=== PATIENT | female | born 1960 | race Caucasian/White ===

== ENCOUNTER 2025-03-06 04:14 | Emergency (ER) | payer MEDICAID, SELFPAY ==
[2025-03-06] VITALS (9 sets, daily range): BP systolic 0–210; BP diastolic 0–119; PULSE 0–99; RESP 0–32; TEMP -17.7–36.9; O2SAT 0–100; BMI 30.4
[2025-03-06] MEDS: LORazepam 1 MG TABLET 2 MG PO (04:38)
--- NOTE | 2025-03-06 05:01 | ED_ITS ---
HPI - General Adult General Chief complaint: ETOH/Substance Use Stated complaint: HEROIN WITHDRAWALS/ NAUSEA/ VOMITTING Time Seen by Provider: 03/06/25 04:34 Source: patient Mode of arrival: EMS Limitations: no limitations History of Present Illness ED Provider: HPI narrative: Patient's history of opiate abuse last time he use heroin 5-6 bag was yesterday comes here with increased anxiety and restlessness with nausea patient has denied any other substance abuse no history of fall no alcohol use patient is very restless anxious on arrival saturating 100% at room air blood pressure 181/117 Related Data Previous Rx's ?Medication ?Instructions ?Recorded buprenorphine 8 mg-naloxone 2 mg 1 film buccal BID 5 days #10 ea 03/06/25 sublingual film (Suboxone) Allergies Allergy/AdvReac Type Severity Reaction Status Date / Time No Known Allergies Allergy Verified 03/06/25 04:27 Review of Systems 2 Review of Systems: Yes all other systems are reviewed and are negative PMFSH Social History Social History Use of substances other than those prescribed or required for medical reasons: Yes Substance Use Type: Heroin Substance Use Frequency: Chronic Longstanding Last Used Substance: Days (ago) Advance Directives: No Advance Directives Information Provided: Yes Do you have a plan to hurt others: No Plan Patient : No Physical Exam ED Vital Signs: Vital Signs - 24 hr 03/06/25 04:28 03/06/25 05:07 03/06/25 06:31 Temperature 98.4 F Pulse Rate 90 Respiratory Rate 18 24 H Blood Pressure 181/117 H 181/117 H Pulse Oximetry 100 Oxygen Delivery Method Room Air 03/06/25 09:29 03/06/25 11:35 03/06/25 12:58 Temperature Pulse Rate 88 82 Respiratory Rate 32 H 16 18 Blood Pressure 210/119 H Pulse Oximetry 99 99 Oxygen Delivery Method Room Air Room Air Room Air 03/06/25 16:26 Temperature Pulse Rate 84 Respiratory Rate 18 Blood Pressure 157/110 H Pulse Oximetry 97 Oxygen Delivery Method Room Air BMI result Body Mass Index 30.4 Appearance: Alert. Oriented X3. Anxious and restless Eyes: PERRLA, No Nystagmus ENT: Pharynx normal. Oral Mucosa moist Neck: Normal inspection. Neck supple. CVS: Normal heart rate and rhythm. Pulses normal. Respiratory: No respiratory distress. Equal air entry bilateral, no wheezing/rales/rhonchi Abdomen: Soft and nontender. Bowel sounds are present, no mass palpable, no CVA tenderness Skin: Skin warm and dry. Normal skin color. Normal skin turgor. Extremities: No lower extremity edema. No calf tenderness Neuro: Oriented X 3. No motor deficit. No sensory deficit.No cerebellar signs , cranial nerves II-XII intact Course Course Course Narrative: 03/06/2025,Dr. Steven Cuellar's note: I assumed care of this patient from my colleague, Dr. Fariha Raygoza at 07:00 hours pending laboratory evaluation and recovery team evaluation for heroin/polysubstance use disorder. The patient presented with altered mental status after using 5-6 bags of heroin, last use yesterday morning. The patient had increased anxiety and agitation. Patient was treated with multiple medications for her agitation including Suboxone film sublingual x2, clonidine 0.2 mg orally, Benadryl 50 mg IV, Haldol 5 mg IV, lorazepam 2 mg orally and Versed 2 mg IV. The patient's agitation improved but she still continued to have involuntary movements of her upper and lower extremities. The patient told me that she has these movement at her baseline in her not related to her drug use. My interpretation of the patient's laboratory evaluation is as follows: WBC normal 7600. H&H was elevated 16.4 and 50.5. Platelet count was low 158,000- there were no baseline labs on this patient, the elevated H&H may be secondary to dehydration/volume depletion but also may be secondary to poly site edema vera. BUN was elevated 18 with an elevated creatinine of 1.47 with a low GFR of 36. Glucose elevated 151. Alcohol was below detectable limits. Urine tox screen was positive for opiates, buprenorphine (which was given here in the emergency department prior to sending urine drug screen), fentanyl, benzodiazepines and cocaine. The patient told me that she is waiting to get into a Suboxone clinic but needs identification before she can get her Suboxone. Patient does not want to wait to be evaluated by our care team/recovery team and wants to leave the emergency department. She is interested in starting Suboxone. The patient was prescribed Suboxone 8 mg/2 mg sublingually b.i.d. and given a 5 day supply. I told her that she could not get into the Suboxone Clinic then she should follow up with our comprehensive Care Clinic to see if they can help her get on Suboxone. She was given printed and verbal instructions and discharged home. Medications Administered Discontinued Medications Generic Name Dose Route Start Last Admin Trade Name Scarlet PRN Reason Stop Dose Admin Buprenorphine/Naloxone 1 film 03/06/25 05:20 03/06/25 05:24 Buprenorphine/Naloxone 8/2 Mg Film SUBLINGUAL 03/06/25 05:21 1 film ONCE ONE Administration Buprenorphine/Naloxone 1 film 03/06/25 06:54 03/06/25 06:59 Buprenorphine/Naloxone 8/2 Mg Film SUBLINGUAL 03/06/25 06:55 1 film ONCE ONE Administration Clonidine HCl 0.2 mg 03/06/25 05:01 03/06/25 05:07 Clonidine Hcl 0.2 Mg Tablet PO 03/06/25 05:02 0.2 mg ONCE ONE Administration Protocol Diphenhydramine HCl 50 mg 03/06/25 08:42 03/06/25 09:09 Diphenhydramine Hcl 50 Mg/Ml Vial IVPUSH 03/06/25 08:43 50 mg ONCE ONE Administration Haloperidol Lactate 5 mg 03/06/25 10:50 03/06/25 11:27 Haloperidol Lactate 5 Mg/Ml Vial IVPUSH 03/06/25 10:51 5 mg ONCE ONE Administration Sodium Chloride 1,000 mls @ 999 mls/hr 03/06/25 10:50 03/06/25 13:06 Ns IV 03/06/25 11:50 Infused .Q1H1M STA Infusion Lorazepam 2 mg 03/06/25 04:34 03/06/25 04:38 Lorazepam 1 Mg Tablet PO 03/06/25 04:35 2 mg ONCE ONE Administration Midazolam HCl 2 mg 03/06/25 05:46 03/06/25 05:49 Midazolam Hcl 2 Mg/2 Ml Vial IM 03/06/25 05:47 2 mg ONCE ONE Administration Midazolam HCl 2 mg 03/06/25 08:48 03/06/25 09:18 Midazolam Hcl 2 Mg/2 Ml Vial IVPUSH 03/06/25 08:49 2 mg ONCE ONE Administration Medical Decision Making Medical Decision Making MDM Narrative: Patient with opiate use disorder in opiate withdrawal was given benzos clonidine and started on Suboxone patient is still very anxious and agitated will give 2nd dose of Suboxone labs are pending patient is signed out Dr. [place] care team consulted Lab Data 03/06/25 07:11 03/06/25 07:14 Labs: Lab Results 03/06/25 03/06/25 03/06/25 Range/Units 07:11 07:14 12:57 WBC 7.6 (4.8-10.8) X10*3/uL RBC 5.42 (4.20-5.50) X10*6/uL Hgb 16.4 H (12.0-16.0) g/dl Hct 50.5 H (37.0-47.0) % MCV 93.2 (80.0-98.0) fL MCH 30.3 (27.0-33.0) pg MCHC 32.5 (31.0-35.0) g/dl RDW 13.9 (11.0-16.0) % Plt Count 158 L (160-400) X10*3/uL MPV 10.1 (9.4-12.3) fL Immature Gran % (Auto) 0.3 (0.0-0.4) % Neut % (Auto) 81.2 H (45-73) % Lymph % (Auto) 12.0 L (20-40) % Woodward % (Auto) 5.4 (2-11) % Eos % (Auto) 0.4 (0-4) % Baso % (Auto) 0.7 (0-2) % Lymph # (Auto) 0.9 L (1.2-4.9) X10*3/uL Woodward # (Auto) 0.4 (0.1-1.2) X10*3/uL Eos # (Auto) 0.0 (0.0-0.4) X10*3/uL Baso # (Auto) 0.1 (0.0-0.2) X10*3/uL Abs Immat Gran (auto) 0.02 (0.00-0.03) X10*3/uL Absolute Neuts (auto) 6.2 (2.0-8.3) x10*3/uL Absolute Nucleated RBC 0.000 (0.0-0.012) X10*3/uL Nucleated RBC % (auto) 0.0 (0.0-0.2) /100WBC Sodium 142 (135-145) mmol/L Potassium 4.0 (3.3-5.1) mmol/L Chloride 107 (96-108) mmol/L Carbon Dioxide 22 (22-29) mmol/L Anion Gap 17 (12-20) BUN 18 H (9-16) mg/dL Creatinine 1.47 H (0.5-1.4) mg/dL Estim Creat Clear Calc 45.5 Estimated GFR 36 Random Glucose 106 (60-115) mg/dL Calcium 9.4 (8.4-10.2) mg/dL Magnesium 1.7 (1.6-2.6) mg/dL Total Bilirubin 0.8 (0.0-1.0) mg/dL AST 23 (5-31) U/L ALT 8 (0-31) U/L Alkaline Phosphatase 65 (39-117) U/L Total Creatine Kinase 151 H (26-140) U/L Total Protein 7.0 (6.5-8.0) g/dL Albumin 4.1 (3.5-5.0) g/dL Urine Opiates Screen POSITIVE H (Not Detect) Ur Buprenorphine Scrn Positive H (Not Detect) ng/mL Ur Oxycodone Screen Not Detected (Not Detect) ng/mL Urine Methadone Screen Not Detected (Not Detect) ng/mL Urine Fentanyl Screen POSITIVE H (Not Detect) Ur Barbiturates Screen Not Detected (Not Detect) Ur Phencyclidine Scrn Not Detected (Not Detect) Ur Amphetamines Screen Not Detected (Not Detect) U Benzodiazepines Scrn POSITIVE H (Not Detect) Urine Cocaine Screen POSITIVE H (Not Detect) U Marijuana (THC) Screen Not Detected (Not Detect) Ethyl Alcohol < 10 mg/dL Discharge Plan Discharge Clinical Impression: Opiate withdrawal, Opiate use, Involuntary jerky movements Patient Disposition: Home, Self-Care Instructions: Opioid Use Disorder (ED) Additional Instructions: your drug screen was positive for opiates, Suboxone, fentanyl, benzodiazepines and cocaine. You told me that you are not taking Suboxone at this time and your are going to get into a Suboxone clinic therefore I am prescribing a 5 day course of Suboxone 8/2 mg twice a day. It is important that you get into the Suboxone clinic or that you follow-up with our comprehensive care program. Follow-up with your doctor in 2 days. Please return to the emergency department if your symptoms get worse or if you develop any symptoms that are concerning to you. Opiate use disorder You were seen in our Emergency Department today for treatment of opiate use disorder. You may have been dosed with medication for opiate use disorder (MOUD) in the form of suboxone or methadone. You may experience feeling some withdrawal symptoms and this is normal. The? dose in the Emergency Department is a starting dose and meant to be titrated up once you follow up with a clinic. Please do not feel discouraged, it is a process. The nurse has reviewed with you where to follow up and what information to bring with you, to continue treatment. You also may have been given naloxone (narcan) to take home with you. This medication is used to potentially treat opiate overdose. If you decide you want to stop or cut down on how much you?re using, you can call or walk into our outpatient Addiction Treatment office: [facility] (M-F 9am-5p) [address], [address] [phone] You may have been provided with safer injection?items, please take time to take care of YOU and your health. Use new supplies whenever possible to lessen the chances of infections and other illnesses.? ?If you need more supplies, please go [facility],? [address] [place] [address] OR you can call or text to coordinate delivery of safer supplies. You were also provided a list of several treatment providers in the area.? If you experience any worsening symptoms you cannot control please return to the ED or call 911. Please follow up at your next appointment. Things to look out for are fevers, chest pain, shortness of breath, severe pain, dizziness, fainting or any other concerns. Prescriptions: New buprenorphine-naloxone [Suboxone] 8-2 mg film 1 film buccal BID 5 Days Qty: 10 0RF Interventions: ED Discharge Assessment Last Done: 03/06/25 20:21 Discharge Date/Time: 03/06/25 20:24 Print Language: Iranian
[2025-03-06] MEDS: cloNIDine HCL 0.2 MG TABLET PO (05:07)
[2025-03-06] MEDS: Buprenorphine/Naloxone 8/2 mg FILM 1 FILM SUBLINGUAL ×2 (05:24→06:59)
[2025-03-06] MEDS: Midazolam HCl 2 MG/2 ML VIAL IM (05:49)
--- NOTE | 2025-03-06 05:52 | PC.NURSE ---
Pt is agitated and unable to sit still at the bedside due to discomfort and withdrawal symptoms. Reports feeling nauseaus and is dry heaving. Unable to obtain IV access, labs, or EKG as pt is unable to remain still and is exhibiting uncontrolled body movements. Versed IM administered to alleviate discomfort. Monitoring is ongoing.
--- NOTE | 2025-03-06 06:34 | MHC.EDTECH ---
Unable to get EKG and labs due to the pt moving around too muc. Provider is aware
[2025-03-06 07:15] LABS: MANUAL DIFF FLAG NO
--- NOTE | 2025-03-06 07:15 | PC.NURSE ---
Pt A&O X4 Unable to keep BP cuff and O2 sat on- temp obtained, nonfebrile- Suboxone administered and IV inserted but unable to lie still for EKG. Provider aware of disposition of restlessness and shouting out in discomfort. HR stable on monitor.
--- NOTE | 2025-03-06 07:15 | MHC.EDTECH ---
Attempted to do ekg, stickers and lead on patient stated I cant do this shit pulls off the leads. Rn aware Ecg unable to get. pt refuse unable to stay still.
[2025-03-06 07:26] LABS: Basophils Absolute Auto 0.1 X10*3/uL (0.0-0.2); Basophils Percent Auto 0.7 % (0-2); Eosinophils Percent Auto 0.4 % (0-4); Hematocrit 50.5 % (37.0-47.0); Hemoglobin 16.4 g/dl (12.0-16.0); Imm Gran Abs Auto 0.02 X10*3/uL (0.00-0.03); Imm Gran Pct Auto 0.3 % (0.0-0.4); Lymphocytes Absolute Auto 0.9 X10*3/uL (1.2-4.9); Mean Corpuscular HGB Conc 32.5 g/dl (31.0-35.0); Mean Corpuscular Hemoglobin 30.3 pg (27.0-33.0); Mean Corpuscular Volume 93.2 fL (80.0-98.0); Mean Platelet Volume 10.1 fL (9.4-12.3); Monocytes Absolute Auto 0.4 X10*3/uL (0.1-1.2); Monocytes Percent Auto 5.4 % (2-11); Neutrophils Absolute Auto 6.2 x10*3/uL (2.0-8.3); Neutrophils Percent Auto 81.2 % (45-73); Platelet Count 158 X10*3/uL (160-400); Red Blood Count 5.42 X10*6/uL (4.20-5.50); Red Cell Distribution Width 13.9 % (11.0-16.0); White Blood Count 7.6 X10*3/uL (4.8-10.8)
[2025-03-06 07:39] LABS: Ethanol < 10 mg/dL
[2025-03-06 08:23] LABS: Alanine Aminotransferase 8 U/L (0-31); Albumin Level 4.1 g/dL (3.5-5.0); Alkaline Phosphatase 65 U/L (39-117); Anion Gap 17 (12-20); Aspartate Amino Transferase 23 U/L (5-31); Bilirubin Total 0.8 mg/dL (0.0-1.0); Blood Urea Nitrogen 18 mg/dL (9-16); Calcium 9.4 mg/dL (8.4-10.2); Carbon Dioxide 22 mmol/L (22-29); Chloride 107 mmol/L (96-108); Creatinine Clr Calc Pharmacy 45.5; Estimated Glomerular Filt Rate 36; Glucose Random 106 mg/dL (60-115); Magnesium 1.7 mg/dL (1.6-2.6); Sodium 142 mmol/L (135-145)
[2025-03-06] MEDS: diphenhydrAMINE HCL 50 MG/ML VIAL IVPUSH (09:09)
[2025-03-06] MEDS: Midazolam HCl 2 MG/2 ML VIAL IVPUSH (09:18)
--- NOTE | 2025-03-06 09:21 | PC.NURSE ---
Pt still agigtated and rolling around in bed- No effect from Benadryl;. Unable to stay stil for BP and keeps ripping off cuff. Provider aware of pt condition. HR 90's sat 90s
--- NOTE | 2025-03-06 09:39 | PC.NURSE ---
Pt remains restless/agitated. Given more meds as charted to assist in sx, no effect at this time. Unable to obtain BP as pt rips off cuff despite encouragement to keep on for BP reading. Pt voided but in commode with absorbent pad with tech and unable to obtain spec at this time. NSR on tele.
--- NOTE | 2025-03-06 11:07 | MHC.CARE ---
Pt is a 64 y/o, female who is previously unknown to the CARE Team.? Today, pt arrived at the ED via ambulance with a complaint of increased anxiety, restlessness, nausea. Pt reported using 5-6 bags of heroin/fentanyl yesterday and daily, prior to her presentation. CARE Team attempted to meet with pt to conduct a Recovery/Behavioral Health Assessment.? Pt does not appear to be able to appropriately engage in an assessment as she appears to be going through withdrawals at the time.? She was. However, able to minimally engage in an assessment. Pt is observed as agitated, rolling about in bed, head lolling from one side to the other, eyes rolling up into her head, uncontrolled body movements, and appearing to be in a great deal of discomfort. Pt was given benzos clonidine and started on Suboxone but was still very anxious and agitated. ED staff were unable to obtain an EKG and labs due to pt?s uncontrolled body movements. Pt denies depression and endorses anxiety. She denies HI, SI, , self-harm, and AVH. She denies any hx of such. She reports frequent opiate use since the age of at or around 16 y/o.? She reports a period of anxiety for an undisclosed period of time ?A long time ago.? She reports one overdose, approximately a year ago when she and a boyfriend were using together.? Both overdosed that day.? She did not provide further details regarding the overdose but it does appear that it is accidental. Pt reports that she has no recovery supports in place and denies any hx of tx for mental illness or substance use. She denies any hx of trauma.? She denies any known family hx of mental illness or substance use.
[2025-03-06] MEDS: Haloperidol Lactate 5 MG/ML VIAL IVPUSH (11:27)
[2025-03-06] MEDS: 0.9 % Sodium Chloride 1,000 ML 999 ML IV (11:28)
--- NOTE | 2025-03-06 11:49 | PC.NURSE ---
Addendum entered by Roberta Cook 03/06/25 13:13: Dr Cuellar updated Addendum entered by Roberta Cook 03/06/25 11:56: Can follow commands but only able to control body movements for short time when attempting care Original Note: Pt remains restless, additional medication interventions attempted/charted. 20g to left wrist bloody and infiltrated d/t pt constant thrashing. IV removed, new IV started to right wrist. BP obtained but ?accuracy d/t pts level of agitation. NS fluid bolus started. Needed to be wrapped x 2 as first wrap came off with movement of pt.
[2025-03-06 13:13] LABS: Amphetamine Screen Urine Not Detected (Not Detect); Barbiturates, Urine Not Detected (Not Detect); Benzodiazepines Screen Urine POSITIVE (Not Detect); Buprenorphine Scr Positive (Not Detect); Cannabinoid Screen Urine Not Detected (Not Detect); Cocaine Screen Urine POSITIVE (Not Detect); Fentanyl, urine POSITIVE (Not Detect); Methadone Screen, Urine Not Detected (Not Detect); Opiate Screen Urine POSITIVE (Not Detect); Oxycodone Screen Urine Not Detected (Not Detect); Phencyclidine Screen Urine Not Detected (Not Detect)
--- NOTE | 2025-03-06 18:12 | PC.NURSE ---
Pt more restful but with moments of jerky movements. Discussing with pt to find ride but states no family and does not want to bug sisters. Pt educated that she needs a ride and is discharged. Pt still has a difficult time tolerating blood pressures, Dr Cuellar aware and okay with discharge with BPs noted.
== END 2025-03-06 20:24 | disposition home or self-care (01) ==
PROVIDERS: Internal Medicine; Emergency Provider Emergency Medicine Emergency Medical Services
DX: F11.23 Opioid dependence with withdrawal (principal); R25.8 Other abnormal involuntary movements; F41.9 Anxiety disorder, unspecified; R45.1 Restlessness and agitation
CPT/HCPCS: 36415; 80053; 80307; 82550; 83735; 85025; 96361; 96372; 96374; 96375; 99285; J1200; J1630; J2250

== ENCOUNTER 2025-03-28 10:28 | Outpatient (REF) | payer MEDICAID, SELFPAY ==
[2025-03-28 11:03] LABS: MANUAL DIFF FLAG NO
[2025-03-28 11:16] LABS: Basophils Absolute Auto 0.1 X10*3/uL (0.0-0.2); Basophils Percent Auto 0.8 % (0-2); Eosinophils Absolute Auto 0.1 X10*3/uL (0.0-0.4); Eosinophils Percent Auto 2.3 % (0-4); Hematocrit 49.7 % (37.0-47.0); Hemoglobin 15.9 g/dl (12.0-16.0); Imm Gran Abs Auto 0.01 X10*3/uL (0.00-0.03); Imm Gran Pct Auto 0.2 % (0.0-0.4); Lymphocytes Absolute Auto 1.6 X10*3/uL (1.2-4.9); Lymphocytes Percent Auto 26.8 % (20-40); Mean Corpuscular Volume 93.8 fL (80.0-98.0); Mean Platelet Volume 10.2 fL (9.4-12.3); Monocytes Absolute Auto 0.5 X10*3/uL (0.1-1.2); Neutrophils Absolute Auto 3.7 x10*3/uL (2.0-8.3); Neutrophils Percent Auto 61.9 % (45-73); Platelet Count 181 X10*3/uL (160-400); Red Cell Distribution Width 14.3 % (11.0-16.0)
[2025-03-28 12:04] LABS: Alanine Aminotransferase 13 U/L (0-31); Albumin Level 4.1 g/dL (3.5-5.0); Alkaline Phosphatase 66 U/L (39-117); Anion Gap 12 (12-20); Aspartate Amino Transferase 15 U/L (5-31); Bilirubin Total 0.4 mg/dL (0.0-1.0); Blood Urea Nitrogen 25 mg/dL (9-16); Calcium 9.3 mg/dL (8.4-10.2); Carbon Dioxide 27 mmol/L (22-29); Chloride 107 mmol/L (96-108); Estimated Glomerular Filt Rate 36; Glucose Random 126 mg/dL (60-115); Potassium 3.5 mmol/L (3.3-5.1); Sodium 142 mmol/L (135-145); Total Protein 6.8 g/dL (6.5-8.0)
--- OUTSIDE RECORDS SUMMARY | 2025-03-28 12:20 | XMS_ITS | Encounter Summary ---
Author Organization [facility] Address [address] [place] [address] [address] [place] [address] Care Team Providers Care Product Operations Associate Name Role Phone Unavailable Primary Care Provider Unavailabl e Reason for Visit * Reason Onset Date Comments Med Refill 03/14/2025 Encounter Details Date Type Department Care Team (Late st Contact Info) Description 03/14/2025 Refill [facility] MEDICINE [address] [place] [phone] Vannessa Spears, RN Social History Tobacco Use Types Packs/Day Years Used Date Smoking Tobacco: Never Assessed Comments Unknown Sex and Gender Information Value Date Recorded Sex Assigned at Female 08/03/2022 10:29 AM EDT Legal Sex Female 10:29 AM EDT Gender Identity Female 03/09/2025 9:49 AM EDT Sexual Orientation Straight 03/09/2025 9: 49 AM EDT documented as of this encounter Plan of Treatment Upcoming Encounters Date Type Department Care Team (Late st Contact Info) Description 04/04/2025 11:15 AM EDT Clinical Support [facility] MEDICINE [address] [place] [address] Debi Cedeño, VIPUL [address] [place] [address] documented as of this encounter Visit Diagnoses Not on filedocumented in this encounter
[2025-03-29 08:18] LABS: HBS Num1 0.77 mIU/mL (0-7.99); HBc Num1 0.11 S/CO (0.00-0.79); HBsAGNum1 0.44 S/CO (0.00-0.99); HIV AB/AG Nonreactive (Nonreactive); HIV Num 1 0.06 S/CO (0.00-0.99); Hepatitis B Core Antibody Nonreactive (Nonreactive); Hepatitis B Surface Antigen Negative (Negative); ~HepC Num1 0.16 S/CO (0.00-0.79); ~Hepatitis B Surface Antibody NONREACTIVE (Nonreactive); ~Hepatitis C Antibody Nonreactive (Nonreactive)
[2025-03-29 12:08] LABS: RPR Rapid Plasma Reagin NON-REACTIVE (NON-REACTIVE)
[2025-03-30 08:58] LABS: Hepatitis A Antibody IgG REACTIVE (Nonreactive); ~Hepatitis A Antibody IgG 9.72 S/CO (0.00-0.99)
[2025-03-31 10:58] LABS: TS Negative Control Passed; TS Panel A 0; TS Panel B 1; TS Positive Control Passed; TSpotTB Negative (Negative)
== END 2025-03-28 10:29 | disposition home or self-care (01) ==
LOC: HO.HHCL 10:28
PROVIDERS: Visit Provider Emergency Medicine
DX: Z11.1 Encounter for screening for respiratory tuberculosis (principal); Z11.4 Encounter for screening for human immunodeficiency virus [HIV]; F11.20 Opioid dependence, uncomplicated
CPT/HCPCS: 36415; 80053; 85025; 86481; 86592; 86704; 86706; 86708; 86803; 87340; 87389

== ENCOUNTER 2025-07-03 18:22 | Outpatient (REF) | payer MEDICAID, SELFPAY ==
--- OUTSIDE RECORDS SUMMARY | 2025-07-03 13:00 | XMS_ITS | Encounter Summary ---
Author Organization [employer] Address [address] [place] [address] Care Team Providers Care Greeting Card Editor Name Role Phone Jose Chiu RN Unavailable [phone] Ashleigh Moreno Unavailable Lelo Hart Primary Care Provider [phone] Encounter Details Date Type Department Care Team (Late st Contact Info) Description 07/03/2025 1:00 PM EDT Office Visit [facility] [place] [facility] [address] [place] [address] Lelo Hart FNP [address] [place] [address] Encounter for wellness examination in adult (Primary Dx); Mild intermittent asthma without complication; Vaginal discharge; Dysuria Social History Tobacco Use Types Packs/Day Years Used Date Smoking Tobacco: Every Day Cigarettes Passive Smoke Exposure: Current Smokeless Tobacco: Current Tobacco Cessation:Ready to Q uit: No; Counseling Given: Yes Alcohol Answer Date Recorded How often do you have a drink containing alcohol ? 0 03/27/2025 Average Number of Drinks Not on file 025 Frequency of Binge Drinking Not on file 03/05 Depression Answer Date Recorded Patient Health Questionnaire-9 Score 2 07/03/2025 Patient Health Questionnaire-9 Score 2 07/03/2025 Last PHQ-9: Questionnaire Data Not on file 0 07/03/2025 Housing Stability Answer Date Recorded What is your housing situation today? I am not s ure 07/03/[address] you li ve. Do you have problems with any of the following? None of the above 07/03/2025 Food Insecurity Answer Date Recorded Within the past 12 months, y ou worried that your food would run out before you got money to buy more: Sometimes True 2024 Within the past 12 months,th e food you bought just didn't last and you didn't have enough money to get more: Often true 07/03/2025 Transportation Answer Date Recorded In the past 12 months, has l ack of transportation kept you from medical appts, meetings, work or from getting things needed for daily living? Yes, it has kept me from medical appointments or getting medications. 07/03/2025 Utilities Answer Date Recorded In the past 12 months, has t he electric, gas, oil or water company threatened to shut off services in your home? Yes 07/03/2025 Depression Answer Date Recorded Patient Health Questionnaire-2 Score 0 07/03/2025 Internet Access Answer Date Recorded Internet Access Q1 No 07/03/2025 Internet Access Q2 I do not want or need it 06/06 Comments Unknown Sex and Gender Information Value Date Recorded Sex Assigned at Female 08/03/2022 10:29 AM EDT Legal Sex Female 10:29 AM EDT Gender Identity Female 03/09/2025 9:49 AM EDT Sexual Orientation Straight 03/09/2025 9: 49 AM EDT documented as of this encounter Last Filed Vital Signs Vital Sign Reading Time Taken Comments Blood Pressure 168/112 07/03/2025 1:21 PM EDT Pulse 84 07/03/2025 1:05 PM EDT Temperature 36.4 C (97.5 F) 07/03/2025 1:05 PM EDT Respiratory Rate 16 07/03/2025 1:05 PM EDT Oxygen Saturation - - Inhaled Oxygen Concentration - - Weight 66.2 kg (146 lb) 07/03/2025 1:05 PM EDT Height 155 cm (5' 1.02 ) 07/03/2025 1:05 PM EDT Body Mass Index 27.56 07/03/2025 1:05 PM EDT documented in this encounter Functional Status * Over the past 2 weeks, how often have you been bothered by any of the following problems? Question Answer Date of Assessment Author Patient Health Questionnaire -2 Score 0 07/03/2025 1:50 PM EDT Analilia Powell MA * Little interest or pleasure in doing things Answer Date of Assessment Author Not at all 07/03/2025 1:50 PM EDT Analilia Ruiz MA * Feeling down, depressed, or hopeless Answer Date of Assessment Author Not at all 07/03/2025 1:50 PM EDT Analilia Ruiz MA * Trouble falling or staying asleep, or sleeping too much Answer Date of Assessment Author Several days 07/03/2025 1:50 PM EDT Analilia Ruiz MA * Feeling tired or having little energy Answer Date of Assessment Author Several days 07/03/2025 1:50 PM EDT Analilia Ruiz MA * Poor appetite or overeating Answer Date of Assessment Author Not at all 07/03/2025 1:50 PM EDT Analilia Ruiz MA * Feeling bad about yourself - or that you are a failure or have let yourself or your family down Answer Date of Assessment Author Not at all 07/03/2025 1:50 PM EDT Analilia Ruiz MA * Trouble concentrating on things, such as reading the newspaper or watching television Answer Date of Assessment Author Not at all 07/03/2025 1:50 PM EDT Analilia Ruiz MA * Moving or speaking so slowly that other people could have noticed? Or the opposite - being so fidgety or restless that you have been moving around a lot more than usual. Answer Date of Assessment Author Not at all 07/03/2025 1:50 PM EDT Analilia Ruiz MA * Thoughts that you would be better off or hurting yourself in some way Answer Date of Assessment Author Not at all 07/03/2025 1:50 PM EDT Analilia Ruiz MA * Patient Health Questionnaire-9 Score Answer Date of Assessment Author 2 07/03/2025 1:50 PM EDT Analilia Ruiz MA * How difficult have these problems made it for you to do your work, take care of things at home, or get along with other people? Answer Date of Assessment Author Not difficult at all 07/03/2025 1:50 PM EDT Analilia Luo MA * Over the last 2 weeks, how often have you been bothered by any of the following problems? Question Answer Date of Assessment Author Feeling nervous, anxious, or on edge 1 07/03/2025 1:51 PM EDT Analilia Powell MA Not being able to stop or control worrying 0 07/03/2025 1:51 PM EDT Analilia Powell MA Worrying too much about different things 1 07/03/2025 1:51 PM EDT Analilia Powell MA Trouble relaxing 1 07/03/2025 1:51 PM EDT Analilia Chow MA Being so restless that it is hard to sit still 0 07/03/2025 1:51 PM EDT Analilia Powell MA Becoming easily annoyed or irritable 0 07/03/2025 1:51 PM EDT Analilia Powell MA Feeling afraid as if somethi ng awful might happen 0 07/03/2025 1:51 PM EDT Analilia Powell MA ASIF-7 Total Score 3 07/03/2025 1:51 PM EDT Analilia Powell MA documented as of this encounter Plan of Treatment Upcoming Encounters Date Type Department Care Team (Late st Contact Info) Description 07/11/2025 10:30 AM EDT Office Visit [facility] [place] [facility] [address] [place] [address] Alpa Toro MD [address] [place] [address] 07/17/2025 3:15 PM EDT Office Visit [facility] [place] [facility] [address] [place] [address] Lelo Hart FNP [address] [place] [address] Scheduled Orders Name Type Priority Associated Diagnoses Orde r Schedule Lipid Panel, Standard Lab Routine Encounter for wellness examination in adult Expected: 07/03/2025 (Approximate), Expires: 07/01/2026 Hemoglobin A1c Lab Routine Encounter for wellness examination in adult Expected: 07/03/2025 (Approximate), Expires: 07/01/2026 Comprehensive Metabolic Panel Lab Routine Encounter for wellness examination in adult Expected: 07/03/2025 (Approximate), Expires: 07/03/2026 TSH Lab Routine Encounter for wellness examination in adult Expected: 07/03/2025 (Approximate), Expires: 07/03/2026 Hepatitis C Antibody with Reflex to HCV, RNA, Quantitative, Real-Time PCR Lab Routine Encounter for wellness examination in adult Expected: 07/03/2025, Expires: 07/03/2026 CBC auto differential Lab Routine Encounter for wellness examination in adult Expected: 07/03/2025 (Approximate), Expires: 07/03/2026 HIV-1/2 Antigen and Antibodies, Fourth Generation, with Reflexes Lab Routine Encounter for wellness examination in adult Expected: 07/03/2025 (Approximate), Expires: 07/03/2026 Bacterial Vaginosis Panel Microbiology Routine Vaginal discharge Ordered: 07/03/2025 Urine Culture Routine Microbiology Routine Dysuria Ordered: 07/03/2025 Chlamydia/N. Gonorrhoeae, PCR, Urine Lab Routine Encounter for wellness examination in adult Ordered: 07/03/2025 documented as of this encounter Goals Goal Patient Goal Type Associated Problems Recent Progress Patient-Stated? Author <enter goal here> General No change(2024 11:54 AM EDT) Yes Alpa Toro MD Note: Keep medical appointment Increase coping skills to promote long-term recovery and improve ability to perform daily activities General Not on track( 025 11:54 AM EDT) No Archana Nation RN documented as of this encounter Procedures Procedure Name Priority Date/Time Associated Diagnosis Comments POCT URINALYSIS DIPSTICK Routine 07/03/2025 2:07 PM EDT Dysuria documented in this encounter Results * POCT Urinalysis (07/03/2025 2:07 PM EDT) Color, UA Yellow Clarity, UA Clear Glucose, UA Negative Bilirubin, UA Negative Ketones, UA Negative Spec Grav, UA 1.030 Blood, UA Negative Negative, None Detected pH, UA 6.5 Protein, UA Trace Comment:100 mg/dL Urobilinogen, UA 0.2 Leukocytes, UA Negative Negative, Rare, Trace Nitrite, UA Negative Negative, None Detected Appearance, UA clear QC Media Lot # [id number] Lot# Expiration Date [id number] Urine 07/03/2025 2:07 PM EDT Lelo MENA POINT OF CARE TEST ENTER/EDIT ORDERABLES Final Result documented in this encounter Visit Diagnoses Diagnosis Encounter for wellness examination in adult- Primary Mild intermittent asthma without complication Vaginal discharge Leukorrhea, not specified as infective Dysuria documented in this encounter Additional Health Concerns Assessment Noted Time PHQ-9 Depression Total Score: 2 07/03/20 1:50 PM EDT documented as of this encounter Care Teams Greeting Card Editor Relationship Specialty Start Date End Date Lelo Hart FNP [address] [place] [phone] PCP - General Family Medicine 07/03/25 Jose Chiu RN [address] [place] [phone] Registered Nurse Family Medicine 04/18/25 Ashleigh Moreno 04/18/25 documented as of this encounter
--- OUTSIDE RECORDS SUMMARY | 2025-07-03 14:30 | XMS_ITS | Encounter Summary ---
Author Organization [employer] Address [address] [place] [address] Care Team Providers Care Mime Artist Name Role Phone Jose Chiu RN Unavailable [phone] Ashleigh Moreno Unavailable Lelo Hart SWAGE TOOLSETTER Primary Care Provider [phone] Reason for Visit * Reason Comments OBAT Encounter Details Date Type Department Care Team (Latest Contact Info) Description 07/03/2025 2:30 PM EDT Clinical Support [facility] [address] [place] [address] Wanda Murrlel RN Opioid type dependence, continuous (CMS/HCC) (Primary Dx) Social History Tobacco Use Types Packs/Day Years Used Date Smoking Tobacco: Every Day Cigarettes Passive Smoke Exposure: Current Smokeless Tobacco: Current Alcohol Answer Date Recorded How often do [...] AM EDT documented as of this encounter Functional Status * Over the [...] Description 07/11/2025 10:30 AM EDT Office Visit [facility] [address] [place] [address] Alpa Toro MD [address] [place] [address] 07/17/2025 3:15 PM EDT Office Visit [facility] [address] [place] [address] Lelo Hart FNP [address] [place] [address] documented as of this encounter Goals Goal [...] Name Priority Date/Time Associated Diagnosis Comments POCT ANAID-14 URINE DRUG SCREEN Routine 07/03/2025 2:29 PM EDT Opioid type dependence, continuous (CMS/HCC) documented in this encounter Results * (ABNORMAL) POCT ANAID-14 Urine Drug Screen (07/03/2025 2:29 PM EDT) THC Positive(A) Negative Cocaine Screen, Urine Positive(A) Negative Opiate Screen, Urine Negative Negative Methamphetamine Screen Urine Negative Negative Amphetamine Screen, Urine Negative Negative Benzodiazepines Screen, Urine Negative Negative Barbiturate Screen, Urine Negative Negative Methadone Screen, Urine Negative Negative Buprenophine Screen, Urine Positive(A) Negative TCA, Urine Negative Negative MDMA Urine Negative Negative ng/mL Oxycodone Screen, Urine Negative Negative Propoxyphene, Urine Negative Negative Fentanyl, Urine Negative Negative Urine Urine specimen obtained by clean catch procedure / Unknown 07/03/2025 2:29 PM EDT Lalito Gudino MD POINT OF CARE TEST ENTER/EDIT OR DERABLES Final Result documented in this encounter Visit Diagnoses Diagnosis Opioid type dependence, continuous (CMS/HCC) (HCC)- Primary Opioid type dependence, continuous documented in this encounter Additional Health Concerns Assessment Noted Time PHQ-9 Depression Total Score: 2 07/03/20 1:50 PM EDT documented as of this encounter Care Teams Mime Artist Relationship Specialty Start Date End Date Lelo Hart FNP [address] [place] [address] PCP - General Family Medicine 07/03/25 Jose Chiu RN [address] [place] [address] Registered Nurse Family Medicine 04/18/25 Ashleigh Moreno 04/18/25 documented as of this encounter
--- OUTSIDE RECORDS SUMMARY | 2025-07-03 18:25 | XMS_ITS | Encounter Summary ---
Author Organization [employer] Address [address] [place] [address] Care Team Providers Care School Program Director Name Role Phone Jose Chiu RN Unavailable [phone] Ashleigh Moreno Unavailable Lelo Hart Primary Care Provider [phone] Encounter Details Date Type Department Care Team ([facility] st Contact Info) Description 07/03/2025 Telephone [facility] [address] [place] [address] Lelo Hart FNP [address] [place] [address] Social History Tobacco Use Types Packs/Day Years [...] Author Not at all 07/03/2025 1:50 PM EDAnalilia Gurrola MA * Feeling bad about yourself - [...] Description 07/11/2025 10:30 AM EDT Office Visit [facility] [address] [place] [address] Alpa Toro MD [address] [place] [address] 07/17/2025 3:15 PM EDT Office Visit [facility] [address] [place] [phone] Lelo Hart FNP [address] [place] [address] documented as of this encounter Goals Goal [...] Nation, VIPUL documented as of this encounter Visit Diagnoses Not on filedocumented in this encounter Additional Health Concerns Assessment Noted Time PHQ-9 Depression Total Score: 2 07/03/20 25 1:50 PM EDT documented as of this encounter Care Teams School Program Director Relationship Specialty Start Date End Date Lelo Hart FNP [address] [place] [address] PCP - General Family Medicine 07/03/25 Jose Chiu, RN [address] [place] [address] Registered Nurse Family Medicine 04/18/25 Ashleigh Moreno 04/18/25 documented as of this encounter
--- OUTSIDE RECORDS SUMMARY | 2025-07-03 18:25 | XMS_ITS | Encounter Summary ---
Author Organization [employer] Address [address] 7[address] [place] [address] Care Team Providers Care Signal Technician Name Role Phone Jose Chiu RN Unavailable [phone] Ashleigh Moreno Unavailable Reason for Visit * Reason Onset Date Comments ID Management 07/02/2025 Encounter Details Date Type Department Care Team ([facility] st Contact Info) Description 07/02/2025 Telephone [facility] [address] [place] [address] Archana Nation RN [address] [place] [address] ID Management Social History Tobacco Use Types Packs/Day Years Used Date Smoking Tobacco: Every Day Cigarettes Alcohol Answer Date Recorded How often do [...] AM EDT documented as of this encounter Miscellaneous Notes * Telephone Encounter - Archana Nation RN - 07/02/2025 3:25 PM EDT RN call to pt to remind her of PCP and OBAT appointment tomorrow, left message with appointment information. documented in this encounter Plan of Treatment Upcoming Encounters Date Type Department Care Team (Late st Contact Info) Description 07/11/2025 10:30 AM EDT Office Visit [facility] [address] [place] [phone] Alpa Toro MD [address] [place] [address] 07/17/2025 3:15 PM EDT Office Visit [facility] [address] [place] [address] Lelo Hart FNP [address] [place] [address] documented as of this encounter Goals Goal [...] Nation RN documented as of this encounter Visit Diagnoses Not on filedocumented in this encounter Additional Health Concerns Assessment Noted Time PHQ-9 Depression Total Score: 16 025 10:50 AM EDT documented as of this encounter Care Teams Signal Technician Relationship Specialty Start Date End Date Jose Chiu RN [address] [place] [address] [place] [address] Registered Nurse Family Medicine 04/18/25 Ashleigh Moreno 04/18/25 documented as of this encounter
--- OUTSIDE RECORDS SUMMARY | 2025-07-03 18:25 | XMS_ITS ---
Author Organization [employer] Address [address] [facility] [address] [place] [address] Care Team Providers Care Chemical Operator Name Role Phone Jose Chiu RN Unavailable [phone] Ashleigh Moreno Unavailable Lelo Hart AVP Primary Care Provider [phone] CHW Complex Status:Outreach In Progress (Enrolling) Start date:04/18/2025 Enrollment reason:Referred by provider Overview Provider Referral- OUD. chronic kidey disease? Please outreach for enrollment. Case Team Name Relationship Phone Ashleigh Moreno(Responsible Staff) [phone] Continued Care and Services Coordination
--- OUTSIDE RECORDS SUMMARY | 2025-07-03 18:25 | XMS_ITS ---
Author Organization [employer] Address [address] [facility] [address] [place] [address] Care Team Providers Care Powerhouse Tender Name Role Phone Jose Chiu RN Unavailable [phone] Ashleigh Moreno Unavailable Lelo Hart DECK MATE Primary Care Provider [phone] Complex Status:Outreach In Progress (Enrolling) Start date:04/18/2025 Enrollment reason:Referred by provider Overview Provider Referral- OUD. chronic kidey disease? Case Team Name Relationship Phone Jose Chiu RN(Responsible Staff) Registered Nurse [phone] Continued Care and Services Coordination
--- OUTSIDE RECORDS SUMMARY | 2025-07-03 18:25 | XMS_ITS | Encounter Summary ---
Author Organization [employer] Address [address] [facility] [address] [place] [address] Care Team Providers Care Commodity Management Specialist Name Role Phone Jose Chiu RN Unavailable [phone] Ashleigh Moreno Unavailable Lelo Hart Primary Care Provider [phone] Reason for Visit * Reason Onset Date Comments Med Refill 03/14/2025 Encounter Details Date Type Department Care Team (Late st Contact Info) Description 03/14/2025 Refill [facility] [address] [place] [address] Vannessa Spears, VIPUL Social History Tobacco Use Types Packs/Day Years [...] 07/11/2025 10:30 AM EDT Office Visit [facility] [address] [place] [address] [phone] Alpa Toro MD [address] [place] [address] 07/17/2025 3:15 PM EDT Office Visit [facility] [address] [place] [address] [phone] Lelo Hart FNP [address] [place] [address] documented as of this encounter Visit Diagnoses Not on filedocumented in this encounter Care Teams Commodity Management Specialist Relationship Specialty Start Date End Date Lelo Hart FNP [address] [place] [address] PCP - General Family Medicine 07/03/25 Jose Chiu, VIPUL [address] [place] [id number] Registered Nurse Family Medicine 04/18/25 Ashleigh Moreno 04/18/25 documented as of this encounter
--- OUTSIDE RECORDS SUMMARY | 2025-07-03 18:25 | XMS_ITS | Encounter Summary ---
Author Organization [employer] Address [address] [facility] [address] [place] [address] Care Team Providers Care Assistant Professor In Family Studies Name Role Phone Jose Chiu RN Unavailable [phone] Ashleigh Moreno Unavailable eLlo Hart DEHYDROGENATION OPERATOR Primary Care Provider [phone] Encounter Details Date Type Department Care Team (Latest Contact Info) Description 07/03/2025 Travel Social History Tobacco Use Types Packs/Day Years [...] Description 07/11/2025 10:30 AM EDT Office Visit [facility] [address] [place] [address] Alpa Toro MD [address] [place] [address] 07/17/2025 3:15 PM EDT Office Visit [facility] [address] [place] [address] Lelo Hart FNP [address] [place] [address] documented as of this encounter Goals Goal [...] documented as of this encounter Care Teams Assistant Professor In Family Studies Relationship Specialty Start Date End Date Lelo Hart FNP [address] [place] [address] PCP - General Family Medicine 07/03/25 Jose Chiu, VIPUL [address] [facility] [place] [address] Registered Nurse Family Medicine 04/18/25 Ashleigh Moreno 04/18/25 documented as of this encounter
--- OUTSIDE RECORDS SUMMARY | 2025-07-03 18:25 | XMS_ITS | Clinical Summary ---
Author Organization [employer] Address [address] [facility] 7[address] [place] [address] Care Team Providers Care Hardware Sales Assistant Name Role Phone Jose Chiu RN Unavailable [phone] Ashleigh Moreno Unavailable Lelo Hart EVP HEAD OF [employer] Primary Care Provider [phone] Allergies Active Allergy Reactions Criticality Noted Date Comments Penicillins 03/09/2025 Medications * This document contains information received from the source organization and may not represent a complete record from that organization. albuterol 108 (90 Base) MCG/ACT inhaler Inhale 2 puffs every 6 (six) hours if needed for wheezing or shortness of breath. 18 g 1 03/09/20 25 026 Active senna (Senokot) 8.6 MG tabletIndicat ions:Uncompli cated opioid dependence (CMS/HCC) ([facility]) TAKE 1 TO 2 TABLETS BY MOUTH DAILY NEEDED FOR CONSTIPATION 180 tablet 2 05/31/20 25 Active docusate sodium (Colace) 100 MG capsuleIndica tions:Uncompl icated opioid dependence (CMS/HCC) ([facility]) TAKE 1 TO 2 CAPSULES BY MOUTH DAILY NEEDED FOR CONSTIPATION 180 capsule 2 05/31/20 25 Active buprenorphine -naloxone (Suboxone) 4-1 MG per sublingual filmIndicatio ns:Opioid use disorder Place 1 Film under the tongue Once per day for 8 days. 8 Film 06/27/20 25 025 Active Buprenorphine HCl-Naloxone HCl (Suboxone) 8-2 MG SL filmIndicatio ns:Uncomplica edmond opioid dependence (CMS/HCC) ([facility]) Place 1 Film under the tongue Once per day for 8 days. 8 Film 06/27/20 25 025 Active fluticasone (Flonase) 50 MCG/ACT nasal spray Administer 1 spray into each nostril Once per day. Shake gently. Before first use, prime pump. After use, clean tip and replace cap. 16 g 2 07/03/20 25 026 Active olmesartan (Benicar) 20 MG tablet Take 1 tablet (20 mg) by mouth Once per day for 60 doses. 30 tablet 1 07/03/20 25 025 Active buprenorphine -naloxone (Suboxone) 4-1 MG per sublingual filmIndicatio ns:Opioid use disorder Place 1 Film under the tongue Once per day for 7 days. 7 Film 05/30/20 25 025 Discontinued(R eorder (will not trigger notification to Pharmacy)) Buprenorphine HCl-Naloxone HCl (Suboxone) 8-2 MG SL filmIndicatio ns:Uncomplica ed[place] opioid dependence ([facility]) ([facility]) Place 1 Film under the tongue Once per day for 7 days. 7 Film 05/30/20 25 025 Discontinued(R eorder (will not trigger notification to Pharmacy)) buprenorphine -naloxone (Suboxone) 4-1 MG per sublingual filmIndicatio ns:Opioid use disorder Place 1 Film under the tongue Once per day for 7 days. 7 Film 06/07/20 25 025 Discontinued(R eorder (will not trigger notification to Pharmacy)) Buprenorphine HCl-Naloxone HCl (Suboxone) 8-2 MG SL filmIndicatio ns:Uncomplica edmond opioid dependence ([facility]) ([facility]) Place 1 Film under the tongue Once per day for 7 days. 7 Film 06/07/20 25 025 Discontinued(R eorder (will not trigger notification to Pharmacy)) buprenorphine -naloxone (Suboxone) 4-1 MG per sublingual filmIndicatio ns:Opioid use disorder Place 1 Film under the tongue Once per day for 7 days. 7 Film 06/15/20 25 025 Discontinued(R eorder (will not trigger notification to Pharmacy)) Buprenorphine HCl-Naloxone HCl (Suboxone) 8-2 MG SL filmIndicatio ns:Uncomplica edmond opioid dependence (CMS/HCC) ([facility]) Place 1 Film under the tongue Once per day for 7 days. 7 Film 06/15/20 25 025 Discontinued(R eorder (will not trigger notification to Pharmacy)) buprenorphine -naloxone (Suboxone) 4-1 MG per sublingual filmIndicatio ns:Opioid use disorder Place 1 Film under the tongue Once per day for 7 days. 7 Film 06/20/20 25 025 Discontinued(R eorder (will not trigger notification to Pharmacy)) Buprenorphine HCl-Naloxone HCl (Suboxone) 8-2 MG SL filmIndicatio ns:Uncomplica edmond opioid dependence (CMS/HCC) ([facility]) Place 1 Film under the tongue Once per day for 7 days. 7 Film 06/20/20 25 025 Discontinued(R eorder (will not trigger notification to Pharmacy)) Active Problems Problem Noted Date Diagnosed Date Mild intermittent asthma without complication Vaginal discharge 07/03/2025 Dysuria 07/03/2025 Renal insufficiency 04/11/2025 Assessment & Plan (04/11/2025 5:10 PM EDT): Asymptomatic Likely chronic kidney disease and/or obstructive uropathy Upcoming appointment with new PCP Discussed about lifestyle modification and adequate hydration. Opioid dependence 03/28/2025 Assessment & Plan (06/27/2025 3:13 PM EDT): - stage of change: preparation - Utox review: pos bup and sheri almost every week. Last positive fen on 05/18/25. Occasionally positive thc. - Overdose risk: using mixed drugs - Continue current recovery support - Continue current recovery effort - Reviewed harm reduction and overdose prevention - Continue buprenorphine / naloxone (Suboxone)12/3 mg weekly Assessment & Plan (06/13/2025 6:05 AM EDT): >>ASSESSMENT AND PLAN FOR OPIOID USE DISORDER WRITTEN ON 03/28/2025 11:48 AM BY ALPA TORO MD - stage of change: preparation - Utox review: pos bup, opi, fen, sheri, since 03/09/25. Occasionally positive thc. - Overdose risk: using mixed drugs - Continue current recovery support - Continue current recovery effort - Reviewed harm reduction and overdose prevention - Increase buprenorphine / naloxone (Suboxone) to 12/3 mg weekly Assessment & Plan (06/13/2025 6:05 AM EDT): >>ASSESSMENT AND PLAN FOR OPIOID USE DISORDER WRITTEN ON 04/11/2025 5:42 AM BY ALPA TORO MD - stage of change: preparation - Utox review: pos bup, opi, fen, sheri, since 03/09/25. Occasionally positive thc. - Overdose risk: using mixed drugs - Continue current recovery support - Continue current recovery effort - Reviewed harm reduction and overdose prevention - Increase buprenorphine / naloxone (Suboxone) to 12/3 mg weekly Assessment & Plan (06/13/2025 6:05 AM EDT): >>ASSESSMENT AND PLAN FOR OPIOID USE DISORDER WRITTEN ON 04/25/2025 5:39 AM BY ALPA TORO MD - stage of change: preparation - Utox review: pos bup, opi, fen, sheri, since 03/09/25. Occasionally positive thc. - Overdose risk: using mixed drugs - Continue current recovery support - Continue current recovery effort - Reviewed harm reduction and overdose prevention - Increase buprenorphine / naloxone (Suboxone) to 12/3 mg weekly Assessment & Plan (06/13/2025 6:05 AM EDT): >>ASSESSMENT AND PLAN FOR OPIOID USE DISORDER WRITTEN ON 05/16/2025 5:47 AM BY ALPA TORO MD - stage of change: preparation - Utox review: pos bup, opi, fen, sheri, since 03/09/25. Occasionally positive thc. - Overdose risk: using mixed drugs - Continue current recovery support - Continue current recovery effort - Reviewed harm reduction and overdose prevention - Increase buprenorphine / naloxone (Suboxone) to 12/3 mg weekly Assessment & Plan (06/13/2025 6:05 AM EDT): >>ASSESSMENT AND PLAN FOR OPIOID USE DISORDER WRITTEN ON 05/30/2025 10:45 AM BY ALPA TORO MD - stage of change: preparation - Utox review: pos bup and sheri almost every week. Last positive fen on 05/18/25. Occasionally positive thc. - Overdose risk: using mixed drugs - Continue current recovery support - Continue current recovery effort - Reviewed harm reduction and overdose prevention - Increase buprenorphine / naloxone (Suboxone) to 12/3 mg weekly Anxiety 03/27/2025 Moderate depressive disorder 03/27/2025 Polysubstance use disorder 03/23/2025 Encounters * This document contains information received from the source organization and may not represent a complete record from that organization. Date Type Department Care Team Description 07/03/2025 2:30 PM EDT Clinical Support [address] [address] Wanda Murrell RN Opioid type dependence, continuous ([facility]/HCC) (Primary Dx) 07/03/2025 1:00 PM EDT Office Visit [address] [address] Lelo Hart FNP Encounter for wellness examination in adult (Primary Dx); Mild intermittent asthma without complication; Vaginal discharge; Dysuria 07/03/[address] [address] Lelo Hart FNP 07/03/2025 Travel 07/02/[address] [address] Archana Nation, VIPUL ID Management 06/27/2025 11:15 AM EDT Office Visit [address] [address] Alpa Toro MD Uncomplicated opioid dependence ([facility]) (Primary Dx); Encounter for immunization 06/27/[address] [address] Archana Nation, VIPUL Opioid use disorder; Uncomplicated opioid dependence ([facility]/HCC) 06/27/2025 Travel 06/25/2025 Patient Outreach [facility] [address] [place] [address] Lelo Hart FNP Pre-visit Planning (SDOH unable to reach [facility]) 06/21/2025 11:30 AM EDT Clinical Support [address] [place] [address] Archana Nation RN Uncomplicated opioid dependence (CMS/HCC) 06/21/2025 Travel 06/20/2025 Refill [facility] [address] [place] [phone] Archana Nation RN Opioid use disorder; Uncomplicated opioid dependence (CMS/HCC) 06/14/2025 1:00 PM EDT Clinical Support [facility] [address] [place] [phone] Wanda Murrell RN Uncomplicated opioid dependence (CMS/HCC) (Primary Dx) 06/14/2025 Travel 06/13/2025 Refill [facility] [address] [place] [phone] Archana Nation RN Opioid use disorder; Uncomplicated opioid dependence (CMS/HCC) 06/13/2025 Patient Outreach [address] [address] Cristo Gatica MD Care Coordination (CM/CHW outreach) 06/06/2025 10:15 AM EDT Clinical Support [facility] [address] [place] [phone] Archana Nation RN Opioid use disorder 06/06/2025 Refill [facility] [address] [place] [phone] Archana Nation RN Opioid use disorder; Uncomplicated opioid dependence (CMS/HCC) 06/06/2025 Travel 05/31/2025 Telephone [facility] [address] [place] [phone] Cristo Gatica MD 05/31/2025 Refill [facility] [address] [place] [phone] Swapnil Jennings MD Uncomplicated opioid dependence ([facility]/HCC) 05/30/2025 10:30 AM EDT Office Visit [facility] [address] [place] [address] Alpa Toro MD Uncomplicated opioid dependence ([facility]/HCC) (Primary Dx); Opioid use disorder 05/30/2025 Refill [facility] [address] [place] [phone] Archana Nation RN Opioid use disorder; Uncomplicated opioid dependence (CMS/HCC) 05/30/2025 Travel 05/25/2025 Telephone [facility] [address] [place] [phone] Cristo Gatica MD 05/25/2025 Telephone [facility] [address] [place] [phone] Archana Nation RN OBAT Communication 05/24/2025 Patient Outreach [facility] [address] [place] [phone] Cristo Gatica MD Care Coordination (CM/CHW outreach) 05/23/2025 10:15 AM EDT Clinical Support [address] [address] Archana Nation RN Uncomplicated opioid dependence (CMS/HCC) (Primary Dx); Encounter for immunization 05/23/2025 Refill [facility] [address] [place] [address] Archana Nation RN Opioid use disorder; Uncomplicated opioid dependence (CMS/HCC) 05/23/2025 Patient Outreach [address] [address] Frank Ring Recovery Supports 05/23/2025 Travel 05/18/2025 11:00 AM EDT Clinical Support [address] [address] Archana Nation RN Uncomplicated opioid dependence (CMS/HCC) (Primary Dx) 05/18/2025 Travel 05/16/2025 Refill [facility] [address] [place] [phone] Archana Nation RN Opioid use disorder; Uncomplicated opioid dependence (CMS/HCC) 05/09/2025 9:00 AM EDT Clinical Support [facility] [address] [place] [phone] Archana Nation RN Uncomplicated opioid dependence (CMS/HCC) (Primary Dx) 05/09/2025 Refill [facility] [address] [place] [address] Archana Nation, RN Opioid use disorder; Uncomplicated opioid dependence (CMS/HCC) 05/09/2025 Travel 05/03/[address] [address] Wanda Murrell RN Opioid use disorder; Uncomplicated opioid dependence (CMS/HCC) 05/02/2025 10:15 AM EDT Clinical Support [address] [address] Wanda Murrell RN Uncomplicated opioid dependence (CMS/HCC) (Primary Dx) 05/02/2025 Travel 04/27/[address] [address] Lalito Gudino MD new pt appt 04/27/[address] [address] Lelo Hart FNP No Show (New patient Appointment No show at 9:30 AM with Lelo , [facility] ) 04/26/2025 Patient Outreach [address] [address] Jose Chiu RN Care Management (C3CM- initial assessment/ enrollment. No show.) 04/26/[address] [address] Jessica Blevins [place] CHARTPREP 04/25/2025 10:45 AM EDT Office Visit [address] [address] Alpa Toro MD Opioid use disorder (Primary Dx); Encounter for immunization 04/25/2025 Patient Outreach [address] [address] Lelo Hart FNP Care Coordination (CM/CHW appt reminder) 04/25/[address] [address] Archana Nation, RN PT-1 04/25/[address] [address] Archana Nation, VIPUL Opioid use disorder; Uncomplicated opioid dependence (CMS/HCC) 04/25/2025 Travel 04/24/2025 Population Health Risk Score [facility] () [address] [phone] Provider, Population Health Generic 04/20/2025 Patient Outreach [facility] [address] [place] [address] Lelo Hart FNP Pre-visit Planning (SDOH unable to reach [facility] ) 04/18/2025 10:30 AM EDT Clinical Support [address] [address] Archana Nation RN Uncomplicated opioid dependence (CMS/HCC) (Primary Dx); Encounter for immunization 04/18/2025 Patient Outreach [address] [address] Cristo Gatica MD Care Coordination (CM/CHW outreach) 04/18/[address] [address] Archana Nation, VIPUL Opioid use disorder; Uncomplicated opioid dependence (CMS/HCC) 04/18/2025 Patient Outreach [address] [address] Cristo Gatica MD Care Coordination (CHW chart review) 04/18/2025 Travel 04/18/2025 Patient Outreach [address] [address] Jose Chiu, VIPUL Care Management (C3- chart review) 04/18/2025 Patient Outreach [address] [address] Kellen Dimas, VIPUL 04/11/2025 10:30 AM EDT Office Visit [address] [address] Alpa Toro MD Opioid use disorder (Primary Dx); Uncomplicated opioid dependence (CMS/HCC); Renal insufficiency 04/11/2025 Refill [facility] [address] [place] [address] Archana Nation RN Opioid use disorder; Uncomplicated opioid dependence (CMS/HCC) 04/11/2025 Travel 04/02/2025 Telephone [facility] [address] [place] [address] Cristo Gatica MD from Last 3 Months Immunizations Immunization Administration Dates Next Due HepB-CpG 05/23/2025,04/25/2025 05/23/2025 Influenza, seasonal, injectable, preservative fr ee 06/27/2025 Pneumococcal Conjugate PCV 20 04/18/2025 Social History Tobacco Use Types Packs/Day Years [...] Orientation Straight 03/09/2025 9: 49 AM EDT Last Filed Vital Signs Vital Sign Reading [...] Mass Index 27.56 07/03/2025 1:05 PM EDT Plan of Treatment Upcoming Encounters Date Type Department Care Team (Late st Contact Info) Description 07/11/2025 10:30 AM EDT Office Visit [facility] [address] [place] [phone] Alpa Toro MD [address] [place] [address] 07/17/2025 3:15 PM EDT Office Visit [facility] [address] [place] [phone] Lelo Hart FNP [address] [place] [address] Health Maintenance Due Date Last Done Comments CT Colonography 1960 Colonoscopy 1960 Colorectal Cancer Screening 1960 FIT DNA/Cologuard 1960 FIT 1960 FOBT 1960 Lipid Panel 1960 Sigmoidoscopy 1960 DTaP/Tdap/Td Vaccines (1 - Tdap) 1979 Pap Smear 1981 Cervical Cancer Screening 1990 HPV/Cotest 1990 Mammogram 2000 Zoster Vaccines (1 of 2) 2010 RSV Patients and Patients Aged 60 years or older (1 - Risk 60-74 years 1-dose series) 2020 COVID-19 Vaccine (1 - 2023-2 5 season) 2025 Alcohol/Substance Use Screening 07/03/2026 07/03/2025 Depression Screening 07/03/2026 07/03/2025, 07/03/2025 Disability Screening 07/03/2026 07/03/2025 SDOH Screening 07/03/2026 07/03/2025 Tobacco Screening 07/03/2026 07/03/2025 HIV Screening Completed 03/28/2025 Hepatitis C Screening Completed 03/28/2025 Pneumococcal Vaccine: 50+ Years Completed 04/18/2025 Hepatitis B Vaccines Completed 05/23/2025, 04/25/2025 Influenza Vaccine Completed 06/27/2025 HIB Vaccines Aged Out No longer eligi ble based on patient's age to complete this topic HPV Vaccines Aged Out No longer eligi ble based on patient's age to complete this topic Hepatitis A Vaccines Aged Out No long er eligible based on patient's age to complete this topic IPV Vaccines Aged Out No longer eligi ble based on patient's age to complete this topic Meningococcal B Vaccine Aged Out No l onger eligible based on patient's age to complete this topic Meningococcal Vaccine Aged Out No christiano mary eligible based on patient's age to complete this topic RSV under 20 months Aged Out No longe r eligible based on patient's age to complete this topic Rotavirus Vaccines Aged Out No longer eligible based on patient's age to complete this topic Goals Goal Patient Goal Type Associated Problems Recent Progress Patient-Stated? Author <enter goal here> General No change(2024 11:54 AM EDT) Yes Alpa Toro MD Note: Keep medical appointment Increase coping skills to promote long-term recovery and improve ability to perform daily activities General Not on track( 025 11:54 AM EDT) No Archana Nation, production material handler Procedure Name Priority Date/Time Associated Diagnosis Comments POCT ANAID-14 URINE DRUG SCREEN Routine 07/03/2025 2:29 PM EDT Opioid type dependence, continuous (CMS/HCC) POCT URINALYSIS DIPSTICK Routine 07/03/2025 2:07 PM EDT Dysuria POCT ANAID-14 URINE DRUG SCREEN Routine 06/27/2025 11:47 AM EDT Uncomplicated opioid dependence (CMS/HCC) POCT ANAID-14 URINE DRUG SCREEN Routine 06/14/2025 1:18 PM EDT Uncomplicated opioid dependence (CMS/HCC) POCT ANAID-14 URINE DRUG SCREEN Routine 05/30/2025 10:10 AM EDT Uncomplicated opioid dependence (CMS/HCC) POCT ANAID-14 URINE DRUG SCREEN Routine 05/23/2025 10:26 AM EDT Uncomplicated opioid dependence (CMS/HCC) POCT ANAID-14 URINE DRUG SCREEN Routine 05/18/2025 11:12 AM EDT Uncomplicated opioid dependence (CMS/HCC) POCT ANAID-14 URINE DRUG SCREEN Routine 05/09/2025 11:16 AM EDT Uncomplicated opioid dependence (CMS/HCC) POCT ANAID-14 URINE DRUG SCREEN Routine 05/02/2025 11:35 AM EDT Uncomplicated opioid dependence (CMS/HCC) POCT ANAID-14 URINE DRUG SCREEN Routine 04/18/2025 9:26 AM EDT Uncomplicated opioid dependence (CMS/HCC) POCT ANAID-14 URINE DRUG SCREEN Routine 04/11/2025 10:56 AM EDT Opioid use disorder HEPATITIS C AB W/REFL TO HCV RNA, QN, PCR Routine 03/28/2025 10:38 AM EDT Uncomplicated opioid dependence (CMS/HCC) HIV 1/2 ANTIGEN/ANTIBODY, FOURTH GENERATION W/RFL Routine 03/28/2025 10:38 AM EDT Uncomplicated opioid dependence (CMS/HCC) from Last 3 Months or Most Recently Relevant to Health Maintenance Results * (ABNORMAL) POCT ANAID-14 Urine Drug Screen (07/03/2025 2:29 PM EDT) Only the most recent of10 resultswithin the time period is included. THC Positive(A) Negative Cocaine Screen, Urine Positive(A) [...] CARE TEST ENTER/EDIT OR DERABLES Final Result * POCT Urinalysis (07/03/2025 2:07 PM EDT) [...] Media Lot # [id number] Lot# Expiration Date [id number] Urine 07/03/2025 2:07 PM EDT Lelo MENA POINT OF CARE TEST ENTER/EDIT ORDERABLES Final Result * Hepatitis C Antibody with Reflex to HCV, RNA, Quantitative, Real-Time PCR (03/28/2025 10:38 AM EDT) Hepatitis C Antibody Nonreactive Nonreactive [facility] Comment:Antibodies to HCV no t detected; does not exclude early acuteHCV infection. Blood Venous blood specimen / Unknown 03/28/2025 10:38 AM EDT 03/28/2025 10:59 AM EDT Swapnil Jennings MD LAB BLOOD ORDERABLES Final Res ult [facility] [address] [place] [address] [phone] * HIV-1/2 Antigen and Antibodies, Fourth Generation, with Reflexes (03/28/2025 10:38 AM EDT) HIV AB/AG Nonreactive Nonreactive [facility] Comment:HIV-1 p24 Ag and/or HIV-1/HIV-2 Ab not detected.A test result that is nonreactive does not exclude thepossibility of exposure to or infection with HIV-1 and/orHIV-2. Nonreactive results in this assay for individualswith prior exposure to HIV-1 and/or HIV-2 may be due toantigen and antibody levels that are below the limit ofdetection of this assay.The [employer] HIV Ag/Ab Combo assay result andsupplemental assay results should be interpreted inconjunction with the patient's clinical presentation,history and other laboratory results. If the results areinconsistent with clinical evidence, additional testing issuggested to confirm the result. Blood Venous blood specimen / Unknown 03/28/2025 10:38 AM EDT 03/28/2025 10:59 AM EDT Swapnil Jennings MD LAB BLOOD ORDERABLES Final Res ult [facility] [address] [place] [address] [phone] from Last 3 Months or Most Recently Relevant to Health Maintenance Insurance [facility] C3 Care Teams Hardware Sales Assistant Relationship Specialty Start Date End Date Lelo Hart FNP [address] [place] [id number] PCP - General Family Medicine 07/03/25 Jose Chiu, RN [address] [place] [phone] Registered Nurse Family Medicine 04/18/25 Ashleigh Moreno 04/18/25
[2025-07-04 11:03] LABS: Bacterial Vaginosis PCR NEGATIVE (Negative); Candida Group PCR NOT DETECTED (Not Detect); Candida glab krusei PCR NOT DETECTED (Not Detect); Trichomonas vaginalis PCR NOT DETECTED (Not Detect)
[2025-07-04 11:47] LABS: CT PCR Urine NOT DETECTED (Not Detect.); NG PCR Urine NOT DETECTED (Not Detect.)
== END 2025-07-03 18:23 | disposition home or self-care (01) ==
LOC: HO.HHCLNP 18:22
PROVIDERS: Visit Provider Nurse Practitioner Family
DX: Z00.00 Encounter for general adult medical examination without abnormal findings (principal); N89.8 Other specified noninflammatory disorders of vagina; R30.0 Dysuria; Z20.2 Contact with and (suspected) exposure to infections with a predominantly sexual mode of transmission
CPT/HCPCS: 81515; 87086; 87491; 87591

== ENCOUNTER 2025-07-04 11:31 | Outpatient (REF) | payer MEDICAID, SELFPAY ==
--- OUTSIDE RECORDS SUMMARY | 2025-07-03 13:00 | XMS_ITS | Encounter Summary ---
Author Organization [employer] Address [address] [place] [address] Care Team Providers Care Furnace Reliner Name Role Phone Jose Chiu RN Unavailable [phone] Ashleigh Moreno Unavailable Lelo Hart Primary Care Provider Encounter Details Date Type Department Care Team (Late st Contact Info) Description 07/03/2025 1:00 PM EDT Office Visit [facility] [address] [place] [address] Lelo Hart FNP [address] [place] [address] Encounter for wellness examination in adult (Primary [...] Description 07/11/2025 10:30 AM EDT Office Visit [facility] [address] [place] [address] Alpa Toro MD [address] [place] [address] 07/17/2025 3:15 PM EDT Office Visit [facility] [address] [place] [address] Lelo Hart FNP [address] [place] [address] Pending Results Name Type Priority Associated Diagnoses Date /Time Urine Culture Routine Microbiology Routine Dysuria 07/03/2025 2:01 PM EDT Scheduled Orders Name Type Priority Associated Diagnoses [...] in adult Expected: 07/03/2025 (Approximate), Expires: 07/03/2026 documented as of this encounter Goals Goal Patient Goal Type Associated Problems Recent Progress Patient-Stated? Author <enter goal here> General No change(2024 11:54 AM EDT) Yes Alpa Toro MD Note: Keep medical appointment Increase coping skills to promote long-term recovery and improve ability to perform daily activities General Not on track( 025 11:54 AM EDT) No Archana Nation, VIPUL documented as of this encounter Procedures Procedure Name Priority Date/Time Associated Diagnosis Comments CHLAMYDIA/TRICHOMON /NEISSERIA GONORRHOEAE, PCR, URINE Routine 07/03/2025 2:44 PM EDT Encounter for wellness examination in adult POCT URINALYSIS DIPSTICK Routine 07/03/2025 2:07 PM EDT Dysuria BACTERIAL VAGINOSIS PANEL Routine 07/03/2025 2:01 PM EDT Vaginal discharge CULTURE, URINE, ROUTINE Routine 07/03/2025 2:01 PM EDT Dysuria documented in this encounter Results * Chlamydia/N. Gonorrhoeae, PCR, Urine (07/03/2025 2:44 PM EDT) CT PCR, Urine NOT DETECTED Not Detect. [facility] Comment:A not detected test result does not exclude the possibilityof infection because test results can be affected byimproper specimen collection, concurrent antibiotic therapy,or the number of organisms in the specimen which may bebelow the sensitivity of the test. As with many diagnostictests, results from the Xpert CT/NG assay should beinterpreted in conjunction with other laboratory andclinical data available to the clinician.The Xpert CT/NG assay should not be used for the evaluationof suspected sexual abuse or for other medico-legalindications. Additional testing is recommended in anycircumstance when false positive or false negative resultscould lead to adverse medical, social or psychologicalconsequences. NG PCR, Urine NOT DETECTED Not Detect. [facility] Comment:A not detected test result does not exclude the possibilityof infection because test results can be affected byimproper specimen collection, concurrent antibiotic therapy,or the number of organisms in the specimen which may bebelow the sensitivity of the test. As with many diagnostictests, results from the Xpert CT/NG assay should beinterpreted in conjunction with other laboratory andclinical data available to the clinician.The Xpert CT/NG assay should not be used for the evaluationof suspected sexual abuse or for other medico-legalindications. Additional testing is recommended in anycircumstance when false positive or false negative resultscould lead to adverse medical, social or psychologicalconsequences. Urine (Urine, Random) 07/03/2025 2:44 PM EDT 07/03/2025 6:23 PM EDT us Lelo Hart [facility] URINE ORDERABLES Final Res ult [facility] [address] [place] [phone] * POCT Urinalysis (07/03/2025 2:07 PM EDT) [...] Media Lot # [id number] Lot# Expiration Date [id number] Urine 07/03/2025 2:07 PM EDT [email or web address] [employer] MANAGEMENT PROFESSOR POINT OF CARE TEST ENTER/EDIT ORDERABLES Final Result * Bacterial Vaginosis Panel (07/03/2025 2:01 PM EDT) TRICHOMONAS VAGINALIS DETECTION BY PCR NOT DETECTED Not Detect [facility] BACTERIAL VAGINOSIS DETECTION BY PCR NEGATIVE Negative [facility] Comment:The BV organism targ ets of the Xpert Xpress MVP test can becommensal in women; Xpert Xpress MVP positive results forbacterial vaginosis should be considered in conjunction withother clinical and patient information to determine thedisease status. Organisms that are not detected by the XpertXpress MVP test have also been reported to be associatedwith BV and aerobic vaginitis.The Xpert Xpress MVP test performance has not been evaluatedin patients under the age of 14. LAYLA GROUP DETECTION BY PCR NOT DETECTED Not Detect [facility] Layla glab krusei PCR NOT DETECTED Not Detect [facility] Swab Vaginal structure / Unknown 07/03/2025 2:01 PM EDT 07/03/2025 6:23 PM EDT [email or web address] [employer] PROFESS[employer] LAB MICROBIOLOGY - GENERAL ORD ERABLES Final Result [facility] [address] [place] [phone] documented in this encounter Visit Diagnoses Diagnosis Encounter for wellness examination in adult- Primary Mild intermittent asthma without complication Vaginal discharge Leukorrhea, not specified as infective Dysuria documented in this encounter Additional Health Concerns Assessment Noted Time PHQ-9 Depression Total Score: 2 07/03/20 25 1:50 PM EDT documented as of this encounter Care Teams Furnace Reliner Relationship Specialty Start Date End Date Lelo Hart FNP [address] [place] [address] PCP - General Family Medicine 07/03/25 Jose Chiu RN [address] [place] [address] Registered Nurse Family Medicine 04/18/25 Ashleigh Moreno 04/18/25 documented as of this encounter
--- OUTSIDE RECORDS SUMMARY | 2025-07-03 14:30 | XMS_ITS | Encounter Summary ---
Author Organization [employer] Address [address] [place] [address] Care Team Providers Care Jewelry Sales Representative Name Role Phone Jose Chiu RN Unavailable [phone] Ashleigh Moreno Unavailable Lelo Hart PRACTICE ASSISTANT Primary Care Provider [phone] Reason for Visit * Reason Comments OBAT Encounter Details Date Type Department Care Team (Latest Contact Info) Description 07/03/2025 2:30 PM EDT Clinical Support [facility] [address] [place] [address] Wanda Murrell RN Opioid type dependence, continuous (CMS/HCC) (Primary [...] Description 07/11/2025 10:30 AM EDT Office Visit [facility] [address] [place] [address] Alpa Toro MD [address] [place] [address] 07/17/2025 3:15 PM EDT Office Visit [facility] [address] [place] [address] Lelo Hart FNP [address] [place] [address] documented as of this encounter Goals Goal [...] documented as of this encounter Care Teams Jewelry Sales Representative Relationship Specialty Start Date End Date Lelo Hart FNP [address] [place] [address] PCP - General Family Medicine 07/03/25 Jose Chiu RN [address] [place] [address] Registered Nurse Family Medicine 04/18/25 Ashleigh Moreno 04/18/25 documented as of this encounter
--- OUTSIDE RECORDS SUMMARY | 2025-07-04 13:06 | XMS_ITS | Encounter Summary ---
Author Organization [employer] Address [address] [place] [address] Care Team Providers Care Security Shift Manager Name Role Phone Jose Chiu RN Unavailable [phone] Ashleigh Moreno Unavailable Lelo Hart PLANT NURSERY WORKER Primary Care Provider [phone] Encounter Details Date Type Department Care Team [...] Description 07/11/2025 10:30 AM EDT Office Visit [facility] [address] [place] [address] Alpa Toro MD [address] [place] [address] 07/17/2025 3:15 PM EDT Office Visit [facility] [address] [place] [address] Lelo Hart FNP [address] [place] [address] documented as of this encounter Goals Goal [...] documented as of this encounter Care Teams Security Shift Manager Relationship Specialty Start Date End Date Lelo Hart FNP [address] [place] [address] PCP - General Family Medicine 07/03/25 Jose Chiu, VIPUL [address] [place] [address] Registered Nurse Family Medicine 04/18/25 Ashleigh Moreno 04/18/25 documented as of this encounter
--- OUTSIDE RECORDS SUMMARY | 2025-07-04 13:06 | XMS_ITS ---
Author Organization [employer] Address [address] [facility] [address] [place] [address] Care Team Providers Care Process Controls Technician Name Role Phone Jose Chiu RN Unavailable [phone] Ashleigh Moreno Unavailable Lelo Hart DECORATOR INSPECTOR Primary Care Provider [phone] CM Complex Status:Outreach In Progress (Enrolling) Start date:04/18/2025 Enrollment reason:Referred by provider Overview Provider Referral- OUD. chronic kidey disease? Case Team Name Relationship Phone Jose Chiu RN(Responsible Staff) Registered Nurse [phone] Continued Care and Services Coordination
--- OUTSIDE RECORDS SUMMARY | 2025-07-04 13:06 | XMS_ITS | Encounter Summary ---
Author Organization [employer] Address [facility] [address] [place] [address] Care Team Providers Care Equipment Services Associate Name Role Phone Jose Chiu RN Unavailable [phone] Ashleigh Moreno Unavailable Lelo Hart Primary Care Provider [phone] Encounter Details Date Type Department Care Team ([facility] st Contact Info) Description 07/03/2025 Telephone [facility] [address] [place] [address] Lelo Hart FNP [address] [place] [address] Social History Tobacco Use Types Packs/Day Years [...] still 0 07/03/2025 1:51 PM EDT Analilia oPwell [place] Becoming easily annoyed or irritable 0 [...] Description 07/11/2025 10:30 AM EDT Office Visit [facility] [address] [place] [address] Alpa Toro MD [address] [place] [address] 07/17/2025 3:15 PM EDT Office Visit [facility] [address] [place] [address] Lelo Hart FNP [address] [place] [address] documented as of this encounter Goals Goal [...] documented as of this encounter Care Teams Equipment Services Associate Relationship Specialty Start Date End Date Lelo Hart FNP [address] [place] [address] PCP - General Family Medicine 07/03/25 Jose Chiu, RN [address] [place] [phone] Registered Nurse Family Medicine 04/18/25 Ashleigh Moreno 04/18/25 documented as of this encounter
--- OUTSIDE RECORDS SUMMARY | 2025-07-04 13:06 | XMS_ITS | Encounter Summary ---
Author Organization [employer] Address [address] [facility] [address] 7t [place] [address] Care Team Providers Care Marketing Recruiter Name Role Phone Jose Chiu RN Unavailable [phone] Ashleigh Moreno Unavailable Reason for Visit * Reason Onset Date Comments ID Management 07/02/2025 Encounter Details Date Type Department Care Team ([facility] st Contact Info) Description 07/02/2025 Telephone [facility] MEDICINE [address] [place] [address] Archana Nation RN 230 [place] [address] ID Management Social History Tobacco Use Types [...] Description 07/11/2025 10:30 AM EDT Office Visit [facility] MEDICINE [address] [place] [address] Alpa Toro MD [address] [place] [address] 07/17/2025 3:15 PM EDT Office Visit [facility] [address] [place] [address] Lelo Hart FNP 230 [place] [address] documented as of this encounter Goals Goal [...] documented as of this encounter Care Teams Marketing Recruiter Relationship Specialty Start Date End Date Jose Chiu RN [address] [place] [address] [place] [address] Registered Nurse Family Medicine 04/18/25 Ashleigh Moreno 04/18/25 documented as of this encounter
--- OUTSIDE RECORDS SUMMARY | 2025-07-04 13:06 | XMS_ITS | Clinical Summary ---
Author Organization [employer] Address 75 [facility] 7t [place] [address] Care Team Providers Care Check Out Clerk Name Role Phone Jose Chiu RN Unavailable [phone] Ashleigh Moreno Unavailable Lelo Hart GELATIN POWDER MIXER Primary Care Provider [phone] Allergies Active Allergy Reactions Criticality Noted Date [...] MG tabletIndicat ions:Uncompli cated opioid dependence (CMS/HCC) ([facility]) TAKE 1 TO 2 TABLETS BY MOUTH DAILY NEEDED FOR CONSTIPATION 180 tablet 2 05/31/20 25 Active docusate sodium (Colace) 100 MG capsuleIndica tions:Uncompl icated opioid dependence (CMS/HCC) ([facility]) TAKE 1 TO 2 CAPSULES BY MOUTH DAILY NEEDED FOR CONSTIPATION 180 capsule 2 05/31/20 25 Active buprenorphine -naloxone (Suboxone) 4-1 MG per sublingual filmIndicatio ns:Opioid use disorder Place 1 Film under the tongue Once per day for 8 days. 8 Film 06/27/20 25 025 Active Buprenorphine HCl-Naloxone HCl (Suboxone) 8-2 MG SL filmIndicatio ns:Uncomplica edmond opioid dependence (CMS/HCC) ([facility]) Place 1 Film under the tongue Once [...] MG SL filmIndicatio ns:Uncomplica edmond opioid dependence ([facility]) ([facility]) Place 1 Film under the tongue Once [...] MG SL filmIndicatio ns:Uncomplica edmond opioid dependence ([facility]) ([facility]) Place 1 Film under the tongue Once [...] SL filmIndicatio ns:Uncomplica edmond opioid dependence (CMS/HCC) ([facility]) Place 1 Film under the tongue Once [...] SL filmIndicatio ns:Uncomplica edmond opioid dependence (CMS/HCC) ([facility]) Place 1 Film under the tongue Once [...] Description 07/03/2025 2:30 PM EDT Clinical Support [address] [address] Wanda Murrell RN Opioid type dependence, continuous ([facility]/HCC) (Primary Dx) 07/03/2025 1:00 PM EDT Office Visit [address] [address] Lelo Hart FNP Encounter for wellness examination in adult (Primary Dx); Mild intermittent asthma without complication; Vaginal discharge; Dysuria 07/03/[address] [address] Lelo Hart FNP 07/03/2025 Travel 07/02/[address] [address] Archana Nation, VIPUL ID Management 06/27/2025 11:15 AM EDT Office Visit [address] [address] Alpa Toro MD Uncomplicated opioid dependence ([facility]) (Primary Dx); Encounter for immunization 06/27/[address] [address] Archana Nation, VPIUL Opioid use disorder; Uncomplicated opioid dependence ([facility]/HCC) 06/27/2025 Travel 06/25/2025 Patient Outreach [facility] [address] [place] [address] Lelo Hart FNP Pre-visit Planning (SDOH unable to reach [facility]) 06/21/2025 11:30 AM EDT Clinical Support [address] [place] [address] Archana Nation RN Uncomplicated opioid dependence (CMS/HCC) 06/21/2025 Travel 06/20/2025 Refill [facility]INE [address] [place] [address] Archana Nation RN Opioid use disorder; Uncomplicated opioid dependence (CMS/HCC) 06/14/2025 1:00 PM EDT Clinical Support [facility] [address] [place] [address] Wanda Murrell RN Uncomplicated opioid dependence (CMS/HCC) (Primary Dx) 06/14/2025 Travel 06/13/2025 Refill [facility] [address] [place] [phone] Archana Nation RN Opioid use disorder; Uncomplicated opioid dependence (CMS/HCC) 06/13/2025 Patient Outreach [address] [address] Cristo Gatica MD Care Coordination (CM/CHW outreach) 06/06/2025 10:15 AM EDT Clinical Support [facility] [address] [place] [address] Archana Nation RN Opioid use disorder 06/06/2025 Refill [facility] [address] [place] [address] Archana Nation RN Opioid use disorder; Uncomplicated opioid dependence (CMS/HCC) 06/06/2025 Travel 05/31/2025 Telephone [facility] [address] [place] [address] Cristo Gatica MD 05/31/2025 Refill [facility] [address] [place] [address] Swapnil Jennings MD Uncomplicated opioid dependence ([facility]/HCC) 05/30/2025 10:30 AM EDT Office Visit [facility] [address] [place] [address] Alpa Toro MD Uncomplicated opioid dependence ([facility]/HCC) (Primary Dx); Opioid use disorder 05/30/2025 Refill [facility] [address] [place] [address] Archana Nation RN Opioid use disorder; Uncomplicated opioid dependence (CMS/HCC) 05/30/2025 Travel 05/25/2025 Telephone [facility] [address] [place] [address] Cristo Gatica MD 05/25/2025 Telephone [facility] [address] [place] [address] Archana Nation RN OBAT Communication 05/24/2025 Patient Outreach [facility] [address] [place] [phone] Cristo Gatica MD Care Coordination (CM/CHW outreach) 05/23/2025 10:15 AM EDT Clinical Support [address] [address] Archana Nation RN Uncomplicated opioid dependence (CMS/HCC) (Primary Dx); Encounter for immunization 05/23/2025 Refill [facility] [address] [place] [address] Archana Nation RN Opioid use disorder; Uncomplicated opioid dependence (CMS/HCC) 05/23/2025 Patient Outreach [address] [address] [facility] 05/23/2025 Travel 05/18/2025 11:00 AM EDT Clinical Support [address] [address] Archana Nation RN Uncomplicated opioid dependence (CMS/HCC) (Primary Dx) 05/18/2025 Travel 05/16/2025 Refill [facility] [address] [place] [address] Archana Nation RN Opioid use disorder; Uncomplicated opioid dependence (CMS/HCC) 05/09/2025 9:00 AM EDT Clinical Support [facility] [address] [place] [address] Archana Nation RN Uncomplicated opioid dependence (CMS/HCC) (Primary Dx) 05/09/2025 Refill [facility] [address] [place] [address] Archana Nation, RN Opioid use disorder; Uncomplicated opioid dependence (CMS/HCC) 05/09/2025 Travel 05/03/[address] [address] Wanda Murrell RN Opioid use disorder; Uncomplicated opioid dependence (CMS/HCC) 05/02/2025 10:15 AM EDT Clinical Support [address] [address] Wanda Murrell RN Uncomplicated opioid dependence (CMS/HCC) (Primary Dx) 05/02/2025 Travel 04/27/[address] [address] Lalito Gudino MD new pt appt 04/27/[address] [address] Lelo Hart FNP No Show (New patient Appointment No show at 9:30 AM with Lelo , letter will be sent to [facility] appt. ) 04/26/2025 Patient Outreach [address] [address] Jose Chiu RN Care Management (C3CM- initial assessment/ enrollment. No show.) 04/26/[address] [address] Jessica Blevins [place] CHARTPREP 04/25/2025 10:45 AM EDT Office Visit [address] [address] Alpa Toro MD Opioid use disorder (Primary Dx); Encounter for immunization 04/25/2025 Patient Outreach [address] [address] Lelo Hart FNP Care Coordination (CM/CHW appt reminder) 04/25/[address] [address] Archana Nation, RN PT-1 04/25/[address] [address] Archana Nation, VIPUL Opioid use disorder; Uncomplicated opioid dependence (CMS/HCC) 04/25/2025 Travel 04/24/2025 Population Health Risk Score [facility] () [address] [phone] Provider, Population Health Generic 04/20/2025 Patient Outreach [facility] [address] [place] [address] Lelo Hart FNP Pre-visit Planning (SDOH unable to reach [facility] ) 04/18/2025 10:30 AM EDT Clinical Support [address] [address] Archana Nation RN Uncomplicated opioid dependence (CMS/HCC) (Primary Dx); Encounter for immunization 04/18/2025 Patient Outreach [address] [address] Cristo Gatica MD Care Coordination (CM/CHW outreach) 04/18/[address] [address] Archana Nation, VIPUL Opioid use disorder; Uncomplicated opioid dependence (CMS/HCC) 04/18/2025 Patient Outreach [address] [address] Cristo Gatica MD Care Coordination (CHW chart review) 04/18/2025 Travel 04/18/2025 Patient Outreach [address] [address] Jose Chiu, VIPUL Care Management (C3- chart review) 04/18/2025 Patient Outreach [address] [address] Kellen Dimas, VIPUL 04/11/2025 10:30 AM EDT Office Visit [address] [address] Alpa Toro MD Opioid use disorder (Primary Dx); Uncomplicated opioid dependence (CMS/HCC); Renal insufficiency 04/11/2025 Refill [facility] [address] [place] [address] Archana Nation, RN Opioid use disorder; Uncomplicated opioid dependence (CMS/HCC) 04/11/2025 Travel from Last 3 Months Immunizations Immunization Administration [...] Description 07/11/2025 10:30 AM EDT Office Visit [facility] [address] [place] [address] Alpa Toro MD [address] [place] [address] 07/17/2025 3:15 PM EDT Office Visit [facility] [address] [place] [address] Lelo Hart FNP [address] [place] [address] Health Maintenance Due Date Last Done Comments [...] 60-74 years 1-dose series) 2020 COVID-19 Vaccine (2023-2 5 season) 2025 Alcohol/Substance Use Screening 07/03/2026 [...] 025 11:54 AM EDT) No Archana Nation, fur comber Procedure Name Priority Date/Time Associated Diagnosis Comments CHLAMYDIA/TRICHOMON /NEISSERIA GONORRHOEAE, PCR, URINE Routine 07/03/2025 2:44 PM EDT Encounter for wellness examination in adult POCT ANAID-14 URINE DRUG SCREEN Routine 07/03/2025 2:29 PM EDT Opioid type dependence, continuous (CMS/HCC) POCT URINALYSIS DIPSTICK Routine 07/03/2025 2:07 PM EDT Dysuria CULTURE, URINE, ROUTINE Routine 07/03/2025 2:01 PM EDT Dysuria BACTERIAL VAGINOSIS PANEL Routine 07/03/2025 2:01 PM EDT Vaginal discharge POCT ANAID-14 URINE DRUG SCREEN Routine 06/27/2025 [...] Recently Relevant to Health Maintenance Results * Chlamydia/N. Gonorrhoeae, PCR, Urine (07/03/2025 2:44 PM EDT) CT PCR, Urine NOT DETECTED Not Detect. [facility] Comment:A not detected test result [...] NG PCR, Urine NOT DETECTED Not Detect. [facility] Comment:A not detected test result [...] 2:44 PM EDT 07/03/2025 6:23 PM EDT Result [facility] Lelo Hart [facility] URINE ORDERABLES Final Res ult [facility] [address] [place] [address] [phone] * (ABNORMAL) POCT ANAID-14 Urine Drug Screen [...] procedure / Unknown 07/03/2025 2:29 PM EDT Result [facility] Lalito Gudino MD POINT OF CARE TEST [...] Media Lot # [id number] Lot# Expiration Date [id number] Urine 07/03/2025 2:07 PM EDT Result [facility] Lelo CARBALLOP POINT OF CARE TEST ENTER/EDIT ORDERABLES Final Result * Bacterial Vaginosis Panel (07/03/2025 2:01 PM EDT) TRICHOMONAS VAGINALIS DETECTION BY PCR NOT DETECTED Not Detect [facility] BACTERIAL VAGINOSIS DETECTION BY PCR NEGATIVE Negative [facility] Comment:The BV organism targ ets [...] DETECTION BY PCR NOT DETECTED Not Detect [facility] Layla glab krusei PCR NOT DETECTED Not Detect [facility] Swab Vaginal structure / Unknown 07/03/2025 2:01 PM EDT 07/03/2025 6:23 PM EDT Lelo [facility] MICROBIOLOGY - GENERAL ORD ERABLES Final Result Performing Organization Address City/[facility]/ZIP Co de Phone Number [facility] [address] [place] [phone] * Hepatitis C Antibody with Reflex to HCV, RNA, Quantitative, Real-Time PCR (03/28/2025 10:38 AM EDT) Hepatitis C Antibody Nonreactive Nonreactive [facility] Comment:Antibodies to HCV no t detected; does not exclude early acuteHCV infection. Blood Venous blood specimen / Unknown 03/28/2025 10:38 AM EDT 03/28/2025 10:59 AM EDT us Swapnil Jennings MD LAB BLOOD ORDERABLES Final Res ult Performing Organization Address City/[facility]/ZIP Co de Phone Number [facility] [address] [place] [phone] * HIV-1/2 Antigen and Antibodies, Fourth Generation, with Reflexes (03/28/2025 10:38 AM EDT) HIV AB/AG Nonreactive Nonreactive [facility] Comment:HIV-1 p24 Ag and/or HIV-1/HIV-2 Ab not detected.A test result that is nonreactive does not exclude thepossibility of exposure to or infection with HIV-1 and/orHIV-2. Nonreactive results in this assay for individualswith prior exposure to HIV-1 and/or HIV-2 may be due toantigen and antibody levels that are below the limit ofdetection of this assay.The [employer] HIV Ag/Ab Combo assay result andsupplemental assay results should be interpreted inconjunction with the patient's clinical presentation,history and other laboratory results. If the results areinconsistent with clinical evidence, additional testing issuggested to confirm the result. Blood Venous blood specimen / Unknown 03/28/2025 10:38 AM EDT 03/28/2025 10:59 AM EDT us Swapnil Jennings MD LAB BLOOD ORDERABLES Final Res ult [facility] [address] [place] [phone] from Last 3 Months or Most Recently Relevant to Health Maintenance [facility] [employer] Care Teams Check Out Clerk Relationship Specialty Start Date End Date Lelo Hart FNP [address] [place] [phone] PCP - General Family Medicine 07/03/25 Jose Chiu RN [address] [place] [phone] Registered Nurse Family Medicine 04/18/25 Ashleigh Moreno 04/18/25
--- OUTSIDE RECORDS SUMMARY | 2025-07-04 13:06 | XMS_ITS | Encounter Summary ---
Author Organization [email or web address] Address 75 [facility] 7t [place] [address] Care Team Providers Care Mysql Database Developer Name Role Phone Jose Chiu RN Unavailable [phone] Ashleigh Moreno Unavailable Lelo Hart Primary Care Provider [phone] Reason for Visit * Reason Onset Date Comments Med Refill 03/14/2025 Encounter Details Date Type Department Care Team (Late st Contact Info) Description 03/14/2025 Refill [facility] [address] [place] [address] Vannessa Speras, VIPUL Social History Tobacco Use Types Packs/Day [...] Office Visit [facility] [address] [place] [phone] Alpa Toro MD [address] [place] [address] 07/17/2025 3:15 PM EDT Office Visit [facility] [address] [place] [phone] Lelo Hart FNP [address] [place] [address] documented as of this encounter Visit Diagnoses Not on filedocumented in this encounter Care Teams Mysql Database Developer Relationship Specialty Start Date End Date Lelo Hart FNP [address] [place] [address] PCP - General Family Medicine 07/03/25 Jose Chiu, VIPUL [address] [place] [phone] Registered Nurse Family Medicine 04/18/25 Ashleigh Moreno 04/18/25 documented as of this encounter
--- OUTSIDE RECORDS SUMMARY | 2025-07-04 13:06 | XMS_ITS ---
Author Organization [employer] Address 75 [facility] 7t [place] [address] Care Team Providers Care Clerical Assistant Name Role Phone Jose Chiu RN Unavailable [phone] Ashleigh Moreno Unavailable Lelo Hart [employer] TRA[employer]IC CONTROL SUPERVISOR Primary Care Provider [phone] CHW Complex Status:Outreach In Progress (Enrolling) Start date:04/18/2025 Enrollment reason:Referred by provider Overview Provider Referral- OUD. chronic kidey disease? Please outreach for enrollment. Case Team Name Relationship Phone Ashleigh Moreno(Responsible Staff) [phone] Continued Care and Services Coordination
[2025-07-04 13:17] LABS: MANUAL DIFF FLAG NO
[2025-07-04 13:31] LABS: Hematocrit 50.5 % (37.0-47.0); Hemoglobin 15.9 g/dl (12.0-16.0); Imm Gran Abs Auto 0.02 X10*3/uL (0.00-0.03); Imm Gran Pct Auto 0.3 % (0.0-0.4); Lymphocytes Absolute Auto 2.0 X10*3/uL (1.2-4.9); Mean Corpuscular HGB Conc 31.5 g/dl (31.0-35.0); Mean Corpuscular Hemoglobin 30.8 pg (27.0-33.0); Mean Corpuscular Volume 97.9 fL (80.0-98.0); NRBC Abs Auto 0.000 X10*3/uL (0.0-0.012); NRBC Pct Auto 0.0 /100WBC (0.0-0.2); Platelet Count 191 X10*3/uL (160-400); Red Blood Count 5.16 X10*6/uL (4.20-5.50); White Blood Count 6.6 X10*3/uL (4.8-10.8)
[2025-07-04 13:33] LABS: Hemoglobin A1C 141.9618 umol/L
[2025-07-04 13:53] LABS: Alanine Aminotransferase 12 U/L (0-31); Albumin Level 4.0 g/dL (3.5-5.0); Alkaline Phosphatase 75 U/L (39-117); Anion Gap 11 (12-20); Aspartate Amino Transferase 17 U/L (5-31); Blood Urea Nitrogen 25 mg/dL (9-16); Calcium 9.0 mg/dL (8.4-10.2); Carbon Dioxide 29 mmol/L (22-29); Chloride 106 mmol/L (96-108); Cholesterol 202 mg/dL (<200); Estimated Glomerular Filt Rate 32; HDL Cholesterol 66 mg/dL (>40); Potassium 5.0 mmol/L (3.3-5.1); Sodium 141 mmol/L (135-145); Total Protein 6.7 g/dL (6.5-8.0); Triglycerides 94 mg/dL (<150)
[2025-07-04 14:10] LABS: Thyroid Stimulating Hormone 0.90 uIU/mL (0.32-4.0)
[2025-07-05 05:12] LABS: HIV Num 1 0.08 S/CO (0.00-0.99); ~HepC Num1 0.13 S/CO (0.00-0.79); ~Hepatitis C Antibody Nonreactive (Nonreactive)
== END 2025-07-04 11:32 | disposition home or self-care (01) ==
LOC: HO.HHCL 11:31
PROVIDERS: PCP Nurse Practitioner Family; Visit Provider Nurse Practitioner Family
DX: Z00.00 Encounter for general adult medical examination without abnormal findings (principal); Z11.59 Encounter for screening for other viral diseases; Z11.4 Encounter for screening for human immunodeficiency virus [HIV]
CPT/HCPCS: 36415; 80053; 80061; 83036; 84443; 85025; 86803; 87389